=== PATIENT | female | born 1995 | race Caucasian/White ===

== ENCOUNTER 2020-07-15 04:54 | Observation (INO) ==
[2020-07-15] MEDS: *HR* HYDROmorphone (PF) 1 MG/ML SYRINGE IVP PRN ×2 (08:39→12:55)
[2020-07-15] MEDS ORDERED: 0.9 % Sodium Chloride 1,000 ML ONE (09:58)
[2020-07-15] MEDS: *HR* OxyCODONE/APAP 5/325 TABLET PO PRN ×2 (10:33→16:43)
[2020-07-15 13:29] LABS: Hemoglobin 10.2 g/dL (11.5-15.4); Mean Corpuscular HGB Conc 31.9 g/dL (31.6-35.5); Mean Corpuscular Hemoglobin 30.6 pg (28.0-33.3); Mean Corpuscular Volume 96.1 fL (83.0-100.0); Mean Platelet Volume 9.9 fL (9.4-12.4); Platelet Count 192 K/mcL (140-400); Red Blood Count 3.33 M/mcL (3.82-4.97); Red Cell Distribution Width 11.9 % (11.5-14.5); White Blood Count 8.5 K/mcL (4.3-11.1)
[2020-07-15] MEDS: Ibuprofen 600 MG TABLET PO PRN (21:15)
[2020-07-16] MEDS: *HR* OxyCODONE/APAP 5/325 TABLET PO PRN ×2 (00:47→07:44)
[2020-07-16] MEDS: Ibuprofen 600 MG TABLET PO PRN (07:44)
[2020-07-16 08:09] LABS: Hematocrit 28.9 % (35.3-44.9); Hemoglobin 9.2 g/dL (11.5-15.4); Mean Corpuscular HGB Conc 31.8 g/dL (31.6-35.5); Mean Corpuscular Hemoglobin 31.3 pg (28.0-33.3); Mean Corpuscular Volume 98.3 fL (83.0-100.0); Mean Platelet Volume 9.8 fL (9.4-12.4); Platelet Count 152 K/mcL (140-400); Red Blood Count 2.94 M/mcL (3.82-4.97); Red Cell Distribution Width 11.9 % (11.5-14.5); White Blood Count 6.7 K/mcL (4.3-11.1)
[2020-07-16 11:39] VITALS: BP 110/71
== END 2020-07-16 13:45 | disposition home or self-care (01) ==
LOC: 1NENUPED
PROVIDERS: ADMIT Student in an Organized Health Care Education/Training Program; ATTEND Student in an Organized Health Care Education/Training Program